=== PATIENT | male | born 1960 | race African-American/Black ===

== ENCOUNTER 2017-03-19 12:40 | Inpatient (IN) | payer OTHER ==
[2017-03-19 12:57] VITALS: BMI 20.3
[2017-03-19] MEDS ORDERED: MAGNESIUM CITRATE 300 ML BOTTLE PO PRN (14:44)
[2017-03-19] MEDS ORDERED: MAG HYDROX/AL HYDROX/SIMETH 30 ML UNIT-DOSE CUP PO PRN (14:44)
[2017-03-19] MEDS ORDERED: chlordiazePOXIDE HCL 25 MG CAPSULE PO PRN (14:44)
[2017-03-19] MEDS ORDERED: ACETAMINOPHEN 325 MG TABLET (FP) PO PRN (14:44)
[2017-03-19] MEDS ORDERED: guaiFENesin/D-METHORPHAN HB 10 ML UNIT-DOSE CUPS PO PRN (14:44)
[2017-03-19] MEDS ORDERED: NICOTINE POLACRILEX 2 MG GUM BC PRN (14:44)
[2017-03-19] MEDS ORDERED: MAGNESIUM HYDROX 2400MG/30ML ORAL SUSPENSION 30 ML CUP PO PRN (14:44)
[2017-03-19] MEDS ORDERED: hydrOXYzine PAMOATE 50 MG CAPSULE (FP) PO PRN (14:44)
[2017-03-19] MEDS ORDERED: MENTHOL/PHENOL 1 EACH UD MM PRN (14:44)
[2017-03-19] MEDS ORDERED: P-EPHED 60MG/TRIPROLIDI 2.5MG TABLET PO PRN (14:44)
[2017-03-19] MEDS ORDERED: IBUPROFEN 400 MG TABLET (FP) PO PRN (14:44)
[2017-03-19] MEDS ORDERED: LOPERAMIDE HCL 2 MG CAPSULE PO PRN (14:44)
--- NOTE | 2017-03-19 14:44 | HP ---
CIWA Score - CIWA Score Nausea/Vomitin Muscle Tremors: 3 Anxiety: 3 Agitation: 3 Paroxysmal Sweats: 3 Orientation: 0-Oriented Tacttile Disturbances: 1-Very Mild Itch/Numbness Auditory Disturbances: 0-None Visual Disturbances: 0-None Headache: 1-Very Mild CIWA-Ar Total Score: 17 Admission [facility] Chief Complaint: alcohol withdrawal sx Allergies/Adverse Reactions: Allergies Allergy/AdvReac Type Severity Reaction Status Date / Time sulfamethoxazole Allergy Intermediate Rash Verified 03/19/17 14:03 [From Bactrim] trimethoprim [From Bactrim] Allergy Intermediate Rash Verified 03/19/17 14:03 History of Present Illness: 57 yo m w h/o chronic alcoholism who reports alcohol withdrawal sx when he does not drink. daily cocaine use. denies seizures, dts PMHX HIV+, on meds, does not have them with him and has not been taking them x1 week, schizophrenia on meds which he has been taking. nicotine dependence Exam Limitations: No Limitations - Ebola screening Have you traveled outside of the country in the last 21 days: No Have you had contact with anyone from an Ebola affected area: No Have you been sick,other than usual withdrawal symptoms: No - Review of Systems Constitutional: Chills, Diaphoresis, Changes in sleep, Weakness, Unintentional Wgt. Loss EENT: reports: No Symptoms Reported Respiratory: reports: Cough (urti, smokers cough), Wheezing (astma) Cardiac: reports: No Symptoms Reported GI: reports: Nausea, Poor Appetite, Poor Fluid Intake, Abdominal cramping : reports: No Symptoms Reported Musculoskeletal: reports: No Symptoms Reported Integumentary: reports: Sweating Neuro: reports: Headache, Numbness, Tingling, Tremors Endocrine: reports: No Symptoms Reported Hematology: reports: No Symptoms Reported Psychiatric: reports: Judgement Intact, Mood/Affect Appropiate, Orientated x3, Anxious, Depressed Other Systems: Reviewed and Negative Patient History - Patient Medical History Hx Anemia: No Hx Asthma: Yes Hx Chronic Obstructive Pulmonary Disease (COPD): No Hx Cancer: No Hx Cardiac Disorders: No Hx Congestive Heart Failure: No Hx Hypertension: No Hx Hypercholesterolemia: No Hx Pacemaker: No HX Cerebrovascular Accident: No Hx Seizures: No Hx Dementia: No Hx Diabetes: No Hx Gastrointestinal Disorders: No Hx Liver Disease: No Hx Genitourinary Disorders: No Hx Sexually Transmitted Disorders: Yes (gonorrhea at age 16) Hx Renal Disease (ESRD): No Hx Thyroid Disease: No Hx Human Immunodeficiency Virus (HIV): Yes (POSITIVE SINCE 1982) Hx Hepatitis C: No Hx Depression: Yes Hx Suicide Attempt: No (no SI at this time) Hx Bipolar Disorder: No Hx Schizophrenia: Yes - Patient Surgical History Past Surgical History: Yes Hx Neurologic Surgery: No Hx Cataract Extraction: No Hx Cardiac Surgery: No Hx Lung Surgery: No Hx Breast Surgery: No Hx Breast Biopsy: No Hx Abdominal Surgery: No Hx Appendectomy: No Hx Cholecystectomy: No Hx Genitourinary Surgery: No Hx Section: No Hx Orthopedic Surgery: No Other Surgical History: right testis [id number] Anesthesia Reaction: No - PPD History Previous Implant?: Yes Documented Results: Negative w/proof Implanted On Prior [facility] Admission?: Yes Date: 01/05/16 Results: 0 mm PPD to be Administered?: Yes - Reproductive History Patient is a Female of Child Bearing Age (11 -55 yrs old): No Patient : No - Smoking Cessation Smoking history: Current every day smoker Have you smoked in the past 12 months: Yes Aproximately how many cigarettes per day: 10 Cigars Per Day: 0 Hx Chewing Tobacco Use: No Initiated information on smoking cessation: Yes 'Breaking Loose' booklet given: 03/19/17 - Substance & Tx. History Hx Alcohol Use: Yes Hx Substance Use: Yes Substance Use Type: Alcohol, Cocaine Hx Substance Use Treatment: Yes ([facility] 1 year ago, attends day program HIV/ ID) - Substances Abused Crack Route: Smoking Frequency: 3-6 times per week Amount used: $70 Age of first use: 21 Date of Last Use: 03/18/17 Alcohol-valorie/beer Route: Oral Frequency: Daily Amount used: 1/2 pt./4 (12 oz.) Age of first use: 15 Date of Last Use: 03/18/17 Family Disease History - Family Disease History Family History: Denies Admission Physical Exam BHS - Vital Signs Vital Signs: Vital Signs - 24 hr 03/19/17 12:53 Temperature 98.9 F Pulse Rate 100 H Respiratory 18 Rate Blood Pressure 110/70 - Physical General Appearance: Yes: Nourished, Appropriately Dressed, Disheveled, Mild Distress, Thin, Tremorous, Irritable, Sweating, Anxious HEENTM: Yes: Within Normal Limits, EOMI, Hearing grossly Normal, Normal ENT Inspection, Pharynx Normal, Tm's normal Respiratory: Yes: Chest Non-Tender, Lungs Clear, Normal Breath Sounds, Wheezing Neck: Yes: Within Normal Limits, No masses,lesions,Nodules, Supple, Trachea in good position Breast: Yes: Breast Exam Deferred Cardiology: Yes: Within Normal Limits, Regular Rhythm, Regular Rate, S1, S2 Abdominal: Yes: Normal Bowel Sounds, Non Tender, Flat, Soft Genitourinary: Yes: Within Normal Limits Back: Yes: Within Normal Limits, Normal Inspection Musculoskeletal: Yes: full range of Motion, Gait Steady, Pelvis Stable Extremities: Yes: Normal Capillary Refill, Normal Range of Motion, Non-Tender, Tremors Neurological: Yes: loan collector II-XII NML intact, Fully Oriented, Alert, Motor Strength 5/5, Normal Response, Depressed Affect Integumentary: Yes: Normal Color, Warm, Diaphoresis, Moist Lymphatic: Yes: Within Normal Limits - Addiitonal Findings: withdrawal sx - Diagnostic (1) Alcohol dependence with uncomplicated withdrawal Current Visit: Yes Status: Acute (2) Acquired immune deficiency syndrome (AIDS) Current Visit: No Status: Chronic (3) Asthma Current Visit: No Status: Chronic (4) Cocaine dependence Current Visit: No Status: Chronic (5) Eczema Current Visit: No Status: Chronic (6) Nicotine dependence Current Visit: No Status: Chronic Qualifiers: Nicotine product type: cigarettes Substance use status: uncomplicated Qualified Code(s): F17.210 - Nicotine dependence, cigarettes, uncomplicated (7) Schizophrenia Current Visit: No Status: Chronic Cleared for Admission [facility] - Detox or Rehab [facility] Level of Care: Medically Managed Detox Regimen/Protocol: Librium [facility] Breath Alcohol Content Breath Alcohol Content: 0 Urine Drug Screen - Results Urine Drug Screen Results: KALEN-Cocaine
[2017-03-19] MEDS ORDERED: chlordiazePOXIDE HCL 25 MG CAPSULE PO ONE (15:30)
[2017-03-19] MEDS: RITONAVIR 100 MG TABLET PO SCH (17:15)
[2017-03-19] MEDS: EMTRICITABINE 200MG/TENOFOVIR 300MG PO SCH (17:15)
[2017-03-19] MEDS: DARUNAVIR ETHANOLATE 800 MG TAB PO SCH (17:15)
[2017-03-19] MEDS: NICOTINE 14 MG/24 HOURS TOPICAL PATCH TD SCH (17:16)
[2017-03-19] MEDS: chlordiazePOXIDE HCL 25 MG CAPSULE PO SCH ×2 (17:16→22:13)
[2017-03-19] MEDS: THIAMINE HCL 100 MG TABLET (FP) PO SCH (22:13)
[2017-03-19] MEDS: RALTEGRAVIR POTASSIUM 400 MG TAB PO SCH (22:13)
[2017-03-19] MEDS: NYSTATIN 500,000 UNITS/5 ML SUSPENSION PO SCH (22:13)
[2017-03-20 02:15] LABS: URINE APPEARANCE CLEAR; URINE BILIRUBIN NEGATIVE (NEGATIVE); URINE BLOOD NEGATIVE (NEGATIVE); URINE COLOR LTYELLOW; URINE GLUCOSE (UA) NEGATIVE (NEGATIVE); URINE KETONE NEGATIVE (NEGATIVE); URINE NITRITE NEGATIVE (NEGATIVE); URINE PROTEIN NEGATIVE (NEGATIVE); URINE UROBILINOGEN NEGATIVE mg/dL (0.2-1.0)
[2017-03-20] MEDS: chlordiazePOXIDE HCL 25 MG CAPSULE PO SCH ×4 (06:20→22:05)
--- NOTE | 2017-03-20 09:02 | EKG ---
Test Reason : Blood Pressure : / mmHG Vent. Rate : 088 BPM Atrial Rate : 088 BPM P-R Int : 126 ms QRS Dur : 090 ms QT Int : 356 ms P-R-T Axes : 073 076 074 degrees QTc Int : 430 ms NORMAL SINUS RHYTHM NORMAL ECG NO PREVIOUS ECGS AVAILABLE Confirmed by DARBY DAMON, RAIMUNDO ([id number]) on 03/20/2017 9:02:10 AM Referred By: Confirmed By:RAIMUNDO PASTOR MD
[2017-03-20] MEDS: ALBUTEROL SO4 18 GM HFA INHALER IH PRN (09:25)
[2017-03-20] MEDS: PRENATAL VITAMINS W/ FOLIC ACID TABLET (FP) PO SCH (10:15)
[2017-03-20] MEDS: EMTRICITABINE 200MG/TENOFOVIR 300MG PO SCH (10:15)
[2017-03-20] MEDS: DARUNAVIR ETHANOLATE 800 MG TAB PO SCH (10:15)
[2017-03-20] MEDS: RITONAVIR 100 MG TABLET PO SCH (10:15)
[2017-03-20] MEDS: NICOTINE 14 MG/24 HOURS TOPICAL PATCH TD SCH (10:15)
[2017-03-20] MEDS: RALTEGRAVIR POTASSIUM 400 MG TAB PO SCH ×2 (10:15→22:06)
[2017-03-20] MEDS: NYSTATIN 500,000 UNITS/5 ML SUSPENSION PO SCH ×2 (10:15→22:05)
[2017-03-20 10:18] LABS: MCH 27.6 pg (25.7-33.7); MCHC 32.5 g/dl (32.0-35.9); MEAN CELL VOLUME 84.7 fl (80-96); MEAN PLT VOLUME 7.3 fl (7.5-11.1); PLATELET COUNT 335 K/MM3 (134-434); RDW 13.9 % (11.9-15.9); WHITE BLOOD COUNT 5.3 K/mm3 (4.0-10.0)
[2017-03-20 10:26] LABS: ALBUMIN 3.3 g/dl (3.4-5.0); ALK PHOS 71 U/L (45-117); ANION GAP 6 (8-16); BILIRUBIN,TOTAL 0.6 mg/dL (0.2-1.0); CO2 29 mmol/L (21-32); GLUCOSE,RANDOM 106 mg/dL (74-106); SGOT/AST 16 U/L (15-37); SGPT/ALT 25 U/L (12-78); TOT PROT 6.1 g/dl (6.4-8.2)
[2017-03-20 11:19] LABS: URINE LEUK ESTERASE Negative (NEGATIVE)
[2017-03-20] MEDS ORDERED: FLU VACCINE QUAD 60 MCG/0.5 ML (MDV 17-18) IM ONE (12:00)
--- NOTE | 2017-03-20 12:51 | CONSULT ---
[facility] Psychiatric Consult - Data Date of interview: 03/20/17 Admission source: [facility] Identifying data: Readmission to [facility] for this 57 y/o AA male seeking detox treatment on for alcohol and cocaine dependence.Patient is single without children,domiciled,unemployed and supported on SSI benefits. Substance Abuse History: Confirmed by patient in thius session..See current [facility] report for details : Smoking history: Current every day smoker. Have you smoked in the past 12 months: Yes. Aproximately how many cigarettes per day: 10. Cigars Per Day: 0. Hx Chewing Tobacco Use: No. Initiated information on smoking cessation: Yes. 'Breaking Loose' booklet given: 03/19/17. - Substance & Tx. History. Hx Alcohol Use: Yes. Hx Substance Use: Yes. Substance Use Type : Alcohol, Cocaine. Hx Substance Use Treatment: Yes ([facility] 1 year ago, attends day program HIV/ID). - Substances Abused. Crack. Route: Smoking. Frequency: 3-6 times per week. Amount used: $70. Age of first use: 21. Date of Last Use: 03/18/17. Alcohol-valorie/beer. Route: Oral. Frequency: Daily. Amount used: 1/2 pt./4 (12 oz.). Age of first use: 15. Date of Last Use: 03/18/17 Medical History: Bronchial asthma,HIV infection since 1982,past treatment for gonorrhea,eczema and a remote history of drainage of right hydrocele (2016). Psychiatric History: Diagnosed with Schizophrenia.Prescribed olanzapine 15 mg/ hs + cogentin (dose not recalled).Mr Verde [facility] in the [place].He admits to a history of multiple psychiatric hospitalizations and a history of sub-optimal adherence to his medications (reportedly taken a week ago).Patient denies history of suicide attempts. Physical/Sexual Abuse/Trauma History: Patient denies. Additional Comment: Urine Drug Screen Results: KALEN-Cocaine.Noted. Mental Status Exam - Mental Status Exam Alert and Oriented to: Time, Place, Person Cognitive Function: Grossly Intact Patient Appearance: Unkempt, Disheveled Mood: Nervous, Withdrawn, Irritable Affect: Mood Congruent, Blunted Patient Behavior: Guarded, Cooperative (superficially cooperative) Speech Pattern: Clear Voice Loudness: Normal Thought Process: Goal Oriented Thought Disorder: Not Present Hallucinations: Denies Suicidal Ideation: Denies Homicidal Ideation: Denies Insight/Judgement: Poor Sleep: Fair Appetite: Good Muscle strength/Tone: Normal Gait/Station: Normal Psychiatric Findings - Problem List ([place] 1, 2,3) (1) Alcohol dependence with uncomplicated withdrawal Current Visit: Yes Status: Acute (2) Cocaine dependence Current Visit: Yes Status: Chronic (3) Nicotine dependence Current Visit: Yes Status: Acute Qualifiers: Nicotine product type: cigarettes Substance use status: uncomplicated Qualified Code(s): F17.210 - Nicotine dependence, cigarettes, uncomplicated (4) Schizophrenia Current Visit: Yes Status: Chronic - Initial Treatment Plan Initial Treatment Plan: Psychoeducation.Detoxification in progress.Medications : zyprexa 15 mg po hs + cogentin 0.5 mg po hs.Side effects/benefits of each medication are discussed with the patient.He is in agreement with this careplan.Observation.
--- NOTE | 2017-03-20 14:34 | PN ---
[facility] CIWA - CIWA Score Nausea/Vomitin-No Nausea/No Vomiting Muscle Tremors: 4-Moderate,w/Arms Extend Anxiety: 4-Mod. Anxious/Guarded Agitation: 2 Paroxysmal Sweats: 3 Orientation: 2-Disoriented Date<2 days Tacttile Disturbances: 2-Mild Itch/Numbness/Burn Auditory Disturbances: 0-None Visual Disturbances: 2-Mild Sensitivity Headache: 0-None Present CIWA-Ar Total Score: 19 BHS Progress Note (SOAP) Subjective: Tremors, Fatigue, Anxious, Sweating. Objective: PT. A & O X 2 (UNCERTAIN ABOUT DAY / DATE). NO ACUTE DISTRESS. 03/20/17 14:33 Vital Signs Temperature 98.0 F 03/20/17 13:23 Pulse Rate 98 H 03/20/17 13:23 Respiratory Rate 20 03/20/17 13:23 Blood Pressure 107/66 03/20/17 13:23 O2 Sat by Pulse Oximetry (%) Laboratory Tests 03/19/17 03/20/17 03/20/17 15:46 06:00 06:00 WBC 5.3 D RBC 4.38 Hgb 12.1 Hct 37.1 MCV 84.7 MCH 27.6 MCHC 32.5 RDW 13.9 Plt Count 335 MPV 7.3 L Sodium 139 Potassium 3.8 Chloride 104 Carbon Dioxide 29 Anion Gap 6 L BUN 7 D Creatinine 1.0 Creat Clearance w eGFR > 60 Random Glucose 106 D Calcium 8.0 L Total Bilirubin 0.6 AST 16 D ALT 25 D Alkaline Phosphatase 71 Total Protein 6.1 L Albumin 3.3 L Urine Color Ltyellow Urine Appearance Clear Urine pH 6.0 Ur Specific [place] 1.005 Urine Protein Negative Urine Glucose (UA) Negative Urine Ketones Negative Urine Blood Negative Urine Nitrite Negative Urine Bilirubin Negative Urine Urobilinogen Negative Ur Leukocyte Esterase Negative RPR Titer 03/20/17 06:00 WBC RBC Hgb Hct MCV MCH MCHC RDW Plt Count MPV Sodium Potassium Chloride Carbon Dioxide Anion Gap BUN Creatinine Creat Clearance w eGFR Random Glucose Calcium Total Bilirubin AST ALT Alkaline Phosphatase Total Protein Albumin Urine Color Urine Appearance Urine pH Ur Specific [place] Urine Protein Urine Glucose (UA) Urine Ketones Urine Blood Urine Nitrite Urine Bilirubin Urine Urobilinogen Ur Leukocyte Esterase RPR Titer Nonreactive LABS NOTED. Assessment: 03/20/17 14:33 WITHDRAWAL SYMPTOMS. Plan: CONTINUE DETOX.
[2017-03-20] MEDS: BENZTROPINE MESYLATE 1 MG TABLET (FP) PO SCH (22:05)
[2017-03-20] MEDS: OLANZapine 10 MG TABLET PO SCH (22:05)
[2017-03-20] MEDS: THIAMINE HCL 100 MG TABLET (FP) PO SCH (22:05)
[2017-03-21] MEDS: chlordiazePOXIDE HCL 25 MG CAPSULE PO SCH ×2 (05:40→10:30)
[2017-03-21] MEDS: NYSTATIN 500,000 UNITS/5 ML SUSPENSION PO SCH ×2 (10:29→22:24)
[2017-03-21] MEDS: RITONAVIR 100 MG TABLET PO SCH (10:30)
[2017-03-21] MEDS: DARUNAVIR ETHANOLATE 800 MG TAB PO SCH (10:30)
[2017-03-21] MEDS: RALTEGRAVIR POTASSIUM 400 MG TAB PO SCH ×2 (10:30→22:24)
[2017-03-21] MEDS: EMTRICITABINE 200MG/TENOFOVIR 300MG PO SCH (10:30)
[2017-03-21] MEDS: NICOTINE 14 MG/24 HOURS TOPICAL PATCH TD SCH (10:30)
[2017-03-21] MEDS: PRENATAL VITAMINS W/ FOLIC ACID TABLET (FP) PO SCH (10:30)
--- NOTE | 2017-03-21 15:31 | PN ---
S CIWA - CIWA Score Nausea/Vomitin-Mild Nausea/No Vomiting Muscle Tremors: 4-Moderate,w/Arms Extend Anxiety: 3 Agitation: 3 Paroxysmal Sweats: 2 Orientation: 0-Oriented Tacttile Disturbances: 1-Very Mild Itch/Numbness Auditory Disturbances: 0-None Visual Disturbances: 0-None Headache: 2-Mild CIWA-Ar Total Score: 16 BHS Progress Note (SOAP) Subjective: Tremor, chills, sweating, interrupted sleep Objective: 03/21/17 15:29 Last Vital Signs Temp Pulse Resp BP Pulse Ox 97.5 F L 98 H 18 96/65 03/21/17 13:19 03/21/17 13:19 03/21/17 13:19 03/21/17 13:19 B/P noted Laboratory Tests 03/19/17 03/20/17 03/20/17 15:46 06:00 06:00 WBC 5.3 D RBC 4.38 Hgb 12.1 Hct 37.1 MCV 84.7 MCH 27.6 MCHC 32.5 RDW 13.9 Plt Count 335 MPV 7.3 L Sodium 139 Potassium 3.8 Chloride 104 Carbon Dioxide 29 Anion Gap 6 L BUN 7 D Creatinine 1.0 Creat Clearance w eGFR > 60 Random Glucose 106 D Calcium 8.0 L Total Bilirubin 0.6 AST 16 D ALT 25 D Alkaline Phosphatase 71 Total Protein 6.1 L Albumin 3.3 L Urine Color Ltyellow Urine Appearance Clear Urine pH 6.0 Ur Specific [place] 1.005 Urine Protein Negative Urine Glucose (UA) Negative Urine Ketones Negative Urine Blood Negative Urine Nitrite Negative Urine Bilirubin Negative Urine Urobilinogen Negative Ur Leukocyte Esterase Negative RPR Titer 03/20/17 06:00 WBC RBC Hgb Hct MCV MCH MCHC RDW Plt Count MPV Sodium Potassium Chloride Carbon Dioxide Anion Gap BUN Creatinine Creat Clearance w eGFR Random Glucose Calcium Total Bilirubin AST ALT Alkaline Phosphatase Total Protein Albumin Urine Color Urine Appearance Urine pH Ur Specific [place] Urine Protein Urine Glucose (UA) Urine Ketones Urine Blood Urine Nitrite Urine Bilirubin Urine Urobilinogen Ur Leukocyte Esterase RPR Titer Nonreactive Labs noted Assessment: 03/21/17 15:30 Withdrawal symptoms Noted with hypotension Plan: Continue detox Hypotension: asymptomatic, encouraged to drink lots of water
[2017-03-21] MEDS: chlordiazePOXIDE 5 MG CAPSULE PO SCH ×2 (17:16→22:25)
[2017-03-21] MEDS: THIAMINE HCL 100 MG TABLET (FP) PO SCH (22:24)
[2017-03-21] MEDS: OLANZapine 10 MG TABLET PO SCH (22:24)
[2017-03-21] MEDS: BENZTROPINE MESYLATE 1 MG TABLET (FP) PO SCH (22:24)
[2017-03-22] MEDS: chlordiazePOXIDE 5 MG CAPSULE PO SCH ×2 (06:14→10:38)
--- NOTE | 2017-03-22 08:44 | PN ---
BHS Progress Note (SOAP) Subjective: nausesa, sweats, interrupted sleep, anxiety, tremors Objective: 03/22/17 08:43 Vital Signs - 24 hr 03/21/17 03/21/17 03/21/17 09:13 13:19 17:55 Temperature 97.8 F 97.5 F L 97.3 F L Pulse Rate 99 H 98 H 96 H Respiratory 18 18 18 Rate Blood Pressure 100/71 96/65 93/60 03/21/17 03/22/17 03/22/17 22:36 00:51 04:12 Temperature 99 F Pulse Rate 109 H Respiratory 19 16 18 Rate Blood Pressure 97/66 03/22/17 06:29 Temperature 97.1 F L Pulse Rate 71 Respiratory 18 Rate Blood Pressure 91/62 Laboratory Tests 03/19/17 03/20/17 03/20/17 15:46 06:00 06:00 WBC 5.3 D RBC 4.38 Hgb 12.1 Hct 37.1 MCV 84.7 MCH 27.6 MCHC 32.5 RDW 13.9 Plt Count 335 MPV 7.3 L Sodium 139 Potassium 3.8 Chloride 104 Carbon Dioxide 29 Anion Gap 6 L BUN 7 D Creatinine 1.0 Creat Clearance w eGFR > 60 Random Glucose 106 D Calcium 8.0 L Total Bilirubin 0.6 AST 16 D ALT 25 D Alkaline Phosphatase 71 Total Protein 6.1 L Albumin 3.3 L Urine Color Ltyellow Urine Appearance Clear Urine pH 6.0 Ur Specific [place] 1.005 Urine Protein Negative Urine Glucose (UA) Negative Urine Ketones Negative Urine Blood Negative Urine Nitrite Negative Urine Bilirubin Negative Urine Urobilinogen Negative Ur Leukocyte Esterase Negative RPR Titer 03/20/17 06:00 WBC RBC Hgb Hct MCV MCH MCHC RDW Plt Count MPV Sodium Potassium Chloride Carbon Dioxide Anion Gap BUN Creatinine Creat Clearance w eGFR Random Glucose Calcium Total Bilirubin AST ALT Alkaline Phosphatase Total Protein Albumin Urine Color Urine Appearance Urine pH Ur Specific [place] Urine Protein Urine Glucose (UA) Urine Ketones Urine Blood Urine Nitrite Urine Bilirubin Urine Urobilinogen Ur Leukocyte Esterase RPR Titer Nonreactive Assessment: 03/22/17 08:44 withdrawal sx, cont detox, fliuids, encoruage ambualtion.
[2017-03-22] MEDS: RITONAVIR 100 MG TABLET PO SCH (10:38)
[2017-03-22] MEDS: NYSTATIN 500,000 UNITS/5 ML SUSPENSION PO SCH ×2 (10:38→22:10)
[2017-03-22] MEDS: NICOTINE 14 MG/24 HOURS TOPICAL PATCH TD SCH (10:38)
[2017-03-22] MEDS: PRENATAL VITAMINS W/ FOLIC ACID TABLET (FP) PO SCH (10:38)
[2017-03-22] MEDS: RALTEGRAVIR POTASSIUM 400 MG TAB PO SCH ×2 (10:38→22:09)
[2017-03-22] MEDS: DARUNAVIR ETHANOLATE 800 MG TAB PO SCH (10:38)
[2017-03-22] MEDS: EMTRICITABINE 200MG/TENOFOVIR 300MG PO SCH (10:39)
[2017-03-22] MEDS: ALBUTEROL SO4 18 GM HFA INHALER IH PRN ×2 (10:41→21:10)
[2017-03-22] MEDS: chlordiazePOXIDE HCL 10 MG CAPSULE PO SCH ×2 (17:20→22:09)
[2017-03-22] MEDS: THIAMINE HCL 100 MG TABLET (FP) PO SCH (22:08)
[2017-03-22] MEDS: BENZTROPINE MESYLATE 1 MG TABLET (FP) PO SCH (22:09)
[2017-03-22] MEDS: OLANZapine 10 MG TABLET PO SCH (22:09)
[2017-03-23] MEDS: chlordiazePOXIDE HCL 10 MG CAPSULE PO SCH ×2 (05:25→11:07)
[2017-03-23 09:57] VITALS: BP 98/65; PULSE 107; TEMP 97.8
[2017-03-23] MEDS: DARUNAVIR ETHANOLATE 800 MG TAB PO SCH (10:15)
[2017-03-23] MEDS: PRENATAL VITAMINS W/ FOLIC ACID TABLET (FP) PO SCH (10:15)
[2017-03-23] MEDS: RALTEGRAVIR POTASSIUM 400 MG TAB PO SCH (10:15)
[2017-03-23] MEDS: EMTRICITABINE 200MG/TENOFOVIR 300MG PO SCH (10:16)
[2017-03-23] MEDS: NYSTATIN 500,000 UNITS/5 ML SUSPENSION PO SCH (10:16)
[2017-03-23] MEDS: RITONAVIR 100 MG TABLET PO SCH (10:16)
[2017-03-23] MEDS: NICOTINE 14 MG/24 HOURS TOPICAL PATCH TD SCH (10:16)
[2017-03-23] MEDS: ALBUTEROL SO4 18 GM HFA INHALER IH PRN (10:17)
--- NOTE | 2017-03-23 14:35 | DS ---
[facility] Detox Discharge Summary Admission Date: 03/19/17 Discharge Date: 03/23/17 - History Present History: Alcohol Dependence, Cocaine Dependence Additional Comments: [facility]. PATIENT WAS DISCHARGED FROM DETOX UNIT TO BE TAKEN TO REHAB UNIT IN STABLE MEDICAL CONDITION. Pertinent Past History: Asthma, Schizophrenia, HIV/ AIDS, Depression, Nicotine Dependence, Eczema. - Physical Exam Results Vital Signs: Vital Signs Temperature 97.8 F 03/23/17 09:56 Pulse Rate 107 H 03/23/17 09:56 Respiratory Rate 18 03/23/17 09:56 Blood Pressure 98/65 03/23/17 09:56 O2 Sat by Pulse Oximetry (%) Pertinent Admission Physical Exam Findings: WITHDRAWAL SYMPTOMS. Laboratory Tests 03/19/17 03/20/17 03/20/17 15:46 06:00 06:00 WBC 5.3 D RBC 4.38 Hgb 12.1 Hct 37.1 MCV 84.7 MCH 27.6 MCHC 32.5 RDW 13.9 Plt Count 335 MPV 7.3 L Sodium 139 Potassium 3.8 Chloride 104 Carbon Dioxide 29 Anion Gap 6 L BUN 7 D Creatinine 1.0 Creat Clearance w eGFR > 60 Random Glucose 106 D Calcium 8.0 L Total Bilirubin 0.6 AST 16 D ALT 25 D Alkaline Phosphatase 71 Total Protein 6.1 L Albumin 3.3 L Urine Color Ltyellow Urine Appearance Clear Urine pH 6.0 Ur Specific [place] 1.005 Urine Protein Negative Urine Glucose (UA) Negative Urine Ketones Negative Urine Blood Negative Urine Nitrite Negative Urine Bilirubin Negative Urine Urobilinogen Negative Ur Leukocyte Esterase Negative RPR Titer 03/20/17 06:00 WBC RBC Hgb Hct MCV MCH MCHC RDW Plt Count MPV Sodium Potassium Chloride Carbon Dioxide Anion Gap BUN Creatinine Creat Clearance w eGFR Random Glucose Calcium Total Bilirubin AST ALT Alkaline Phosphatase Total Protein Albumin Urine Color Urine Appearance Urine pH Ur Specific [place] Urine Protein Urine Glucose (UA) Urine Ketones Urine Blood Urine Nitrite Urine Bilirubin Urine Urobilinogen Ur Leukocyte Esterase RPR Titer Nonreactive LABS NOTED. - Treatment Hospital Course: Detox Protocol Followed, Detoxed Safely, Responded well, Discharged Condition Good, Rehab Referral Accepted Patient has Accepted a Rehab Referral to: [facility]. - Medication Discharge Medications: Ambulatory Orders Albuterol Sulfate Inhaler - [Ventolin HFA Inhaler -] 2 inh IH Q4H PRN 06/03/12 Raltegravir [Isentress] 400 mg PO BID 06/03/12 Ritonavir [Norvir] 100 mg PO DAILY 06/03/12 Darunavir Ethanolate [Prezista -] 800 mg PO DAILY 01/03/16 Emtricitabine/Tenofovir [Truvada] 1 tab PO DAILY 01/03/16 Olanzapine [Zyprexa] 15 mg PO HS 01/03/16 Benztropine Mesylate [Cogentin -] 1 mg PO DAILY #30 tablet 01/13/16 Nystatin 1 tsp PO BID 03/19/17 Benztropine Mesylate [Cogentin -] 1 mg PO DAILY #30 tablet 03/20/17 Olanzapine 15 mg PO HS #30 tablet 03/20/17 - Diagnosis (1) Alcohol dependence with uncomplicated withdrawal Status: Acute (2) Acquired immune deficiency syndrome (AIDS) Status: Chronic (3) Asthma Status: Chronic (4) Cocaine dependence Status: Chronic (5) Eczema Status: Chronic (6) Nicotine dependence Status: Chronic Qualifiers: Nicotine product type: cigarettes Substance use status: uncomplicated Qualified Code(s): F17.210 - Nicotine dependence, cigarettes, uncomplicated (7) Schizophrenia Status: Chronic - AMA Did Patient Leave Against Medical Advice: No
== END 2017-03-23 13:43 | disposition other institution (70) | DRG 774 ==
LOC: YASAS 12:40 → Y3N 14:43
PROVIDERS: ADMIT Internal Medicine; ATTEND Internal Medicine
PROC: HZ2ZZZZ Detoxification Services for Substance Abuse Treatment (ICD-10-PCS; principal; 2017-03-19)
DX: F10.230 Alcohol dependence with withdrawal, uncomplicated (principal); F14.20 Cocaine dependence, uncomplicated; F17.210 Nicotine dependence, cigarettes, uncomplicated; F20.9 Schizophrenia, unspecified; J45.909 Unspecified asthma, uncomplicated; I95.9 Hypotension, unspecified; B20 Human immunodeficiency virus [HIV] disease
CPT/HCPCS: 36415; 80053; 81003; 85027; 86593; 93005; 93010

== ENCOUNTER 2017-03-23 13:37 | Inpatient (IN) | payer OTHER ==
[2017-03-23] MEDS ORDERED: NICOTINE POLACRILEX 2 MG GUM BUC PRN (14:26)
[2017-03-23] MEDS ORDERED: MAG HYDROX/AL HYDROX/SIMETH 30 ML UNIT-DOSE CUP PO PRN (14:26)
[2017-03-23] MEDS ORDERED: MENTHOL/PHENOL 1 EACH UD MM PRN (14:26)
[2017-03-23] MEDS ORDERED: guaiFENesin/D-METHORPHAN HB 10 ML UNIT-DOSE CUPS PO PRN (14:26)
[2017-03-23] MEDS ORDERED: MAGNESIUM CITRATE 300 ML BOTTLE PO PRN (14:26)
[2017-03-23] MEDS ORDERED: ALBUTEROL SO4 18 GM HFA INHALER IH PRN (14:26)
[2017-03-23] MEDS ORDERED: MAGNESIUM HYDROX 2400MG/30ML ORAL SUSPENSION 30 ML CUP PO PRN (14:26)
[2017-03-23] MEDS ORDERED: P-EPHED 60MG/TRIPROLIDI 2.5MG TABLET PO PRN (14:26)
[2017-03-23] MEDS ORDERED: IBUPROFEN 400 MG TABLET (FP) PO PRN (14:26)
[2017-03-23] MEDS ORDERED: LOPERAMIDE HCL 2 MG CAPSULE PO PRN (14:26)
[2017-03-23] MEDS ORDERED: ACETAMINOPHEN 325 MG TABLET (FP) PO PRN (14:26)
--- NOTE | 2017-03-23 14:31 | HP ---
GAYLE DAMON Rehab Assess/Revision - Admission History Admitted to Rehab from: [facility] Date of Admission to Rehab: 03/23/2017 - Vital signs Vital Signs: Vital Signs Period Temp Pulse Resp BP Sys/Cervantes Pulse Ox Last 24 Hr 98.1 F 93 18 104/65 - Findings Detox History & Physical reviewed: Yes Concur with findings: Yes Comments/Additional Findings: PATIENT'S MEDICAL / MEDICATION HISTORY REVIEWED PRIOR TO DISCHARGE FROM DETOX UNIT. PATIENT WAS DISCHARGED FROM DETOX UNIT TO BE TAKEN TO REHAB UNIT IN STABLE MEDICAL CONDITION. Inpatient Rehab Admission - Initial Determination Are CD services needed?: Yes Free of communicable disease: Yes Not in need of hospitalization: Yes - Rehab Admission Criteria Previous failed treatment: Yes Comorbidities: Yes Patient is meeting Inpatient Rehab admission criteria:: Yes
--- NOTE | 2017-03-23 14:57 | HP ---
Psychiatrist Admission - Data Date of interview: 03/23/17 Admission source: [facility] Identifying data: This is the third [facility] inpatient rehabilitation admission for this 57 years old single Black male, unemployed and supported on SSI benefits , currently undomiciled. Medical History: Significant for history of Asthma, Eczema, HIV+/AIDS diagnosed in 1992 and S/P draining of hydrocele right testicle, smokes cigarettes 1/2 ppd. Psychiatric History: Patient is poor historian, was diagnosed as Schizophrenia, following at [facility] with , currently on Zyprexa 15 mg po hs and Toby, reports one psychiatric hospitalization " while ago" for auditory hallucinations , seen by while at [facility] and continued medications. Physical/Sexual Abuse/Trauma History: Denies Vital Signs: Vital Signs - 24 hr 03/23/17 14:21 Temperature 98.1 F Pulse Rate 93 H Respiratory 18 Rate Blood Pressure 104/65 Allergies/Adverse Reactions: Allergies Allergy/AdvReac Type Severity Reaction Status Date / Time sulfamethoxazole Allergy Intermediate Rash Verified 03/23/17 14:24 [From Bactrim] trimethoprim [From Bactrim] Allergy Intermediate Rash Verified 03/23/17 14:24 Date of last physical exam: 03/20/17 Concur with the findings of this exam: Yes - Substance Abuse/Tx History Hx Alcohol Use: Yes Hx Substance Use: Yes (crack 2-3 times weekly $70, first use at age of 19) Substance Use Type: Alcohol (age at first use 15, daily beer, 1/2 pint of vodka) , Cocaine Hx Substance Use Treatment: Yes (attends HIVprogram, [facility] x 2) Mental Status Exam - Mental Status Exam Alert and Oriented to: Time, Place, Person Cognitive Function: Grossly Intact Patient Appearance: Unkempt Mood: Angry, Hostile, Irritable Affect: Mood Congruent Patient Behavior: Guarded Speech Pattern: Clear Voice Loudness: Normal Thought Process: Intact, Goal Oriented Hallucinations: Denies Suicidal Ideation: Denies Homicidal Ideation: Denies Insight/Judgement: Fair Sleep: Fair Appetite: Fair Muscle strength/Tone: Normal Gait/Station: Normal Psychiatric Findings - Problem List ([place] 1, 2,3) (1) Alcohol dependence Current Visit: No Status: Chronic (2) Cocaine dependence Current Visit: No Status: Chronic (3) Nicotine dependence Current Visit: No Status: Chronic Qualifiers: Nicotine product type: cigarettes Substance use status: uncomplicated Qualified Code(s): F17.210 - Nicotine dependence, cigarettes, uncomplicated (4) Schizophrenia Current Visit: No Status: Chronic - Initial Treatment Plan Initial Treatment Plan: continue current medications, monitor progress.
[2017-03-23] MEDS: NYSTATIN 500,000 UNITS/5 ML SUSPENSION PO SCH (21:59)
[2017-03-23] MEDS: BENZTROPINE MESYLATE 1 MG TABLET (FP) PO SCH (21:59)
[2017-03-23] MEDS: OLANZapine 7.5 MG TABLET PO SCH (21:59)
[2017-03-23] MEDS: THIAMINE HCL 100 MG TABLET (FP) PO SCH (21:59)
[2017-03-23] MEDS: RALTEGRAVIR POTASSIUM 400 MG TAB PO SCH (22:13)
[2017-03-24] MEDS: PRENATAL VITAMINS W/ FOLIC ACID TABLET (FP) PO SCH (10:40)
[2017-03-24] MEDS: DARUNAVIR ETHANOLATE 800 MG TAB PO SCH (10:40)
[2017-03-24] MEDS: RALTEGRAVIR POTASSIUM 400 MG TAB PO SCH ×2 (10:41→22:05)
[2017-03-24] MEDS: RITONAVIR 100 MG TABLET PO SCH (10:41)
[2017-03-24] MEDS: NYSTATIN 500,000 UNITS/5 ML SUSPENSION PO SCH ×2 (10:41→22:06)
[2017-03-24] MEDS: NICOTINE 14 MG/24 HOURS TOPICAL PATCH TD SCH (10:41)
[2017-03-24] MEDS: EMTRICITABINE 200MG/TENOFOVIR 300MG PO SCH (10:42)
[2017-03-24] MEDS: OLANZapine 7.5 MG TABLET PO SCH (22:04)
[2017-03-24] MEDS: THIAMINE HCL 100 MG TABLET (FP) PO SCH (22:04)
[2017-03-24] MEDS: BENZTROPINE MESYLATE 1 MG TABLET (FP) PO SCH (22:06)
[2017-03-25] MEDS: DARUNAVIR ETHANOLATE 800 MG TAB PO SCH (10:50)
[2017-03-25] MEDS: NICOTINE 14 MG/24 HOURS TOPICAL PATCH TD SCH (10:51)
[2017-03-25] MEDS: PRENATAL VITAMINS W/ FOLIC ACID TABLET (FP) PO SCH (10:51)
[2017-03-25] MEDS: EMTRICITABINE 200MG/TENOFOVIR 300MG PO SCH (10:51)
[2017-03-25] MEDS: NYSTATIN 500,000 UNITS/5 ML SUSPENSION PO SCH (10:51)
[2017-03-25] MEDS: RITONAVIR 100 MG TABLET PO SCH (10:51)
[2017-03-25] MEDS: RALTEGRAVIR POTASSIUM 400 MG TAB PO SCH (10:51)
--- NOTE | 2017-03-25 11:21 | PN ---
BHS Progress Note (SOAP) Subjective: productive cough worse since arrival to dc smokes 1/2 ppd Objective: 03/25/17 11:20 Vital Signs - 24 hr 03/25/17 03/25/17 03/25/17 00:30 03:30 07:20 Respiratory 16 16 16 Rate Assessment: 03/25/17 11:20 productive cough, hiv , tobacco as risk fx given duration will check cxr to r/o intrapulmonary cause note temp, const sx less caurate 2/2 hiv+
--- NOTE | 2017-03-25 13:20 | PN ---
[facility] Progress Note Note: cxrreviewed no acute process
[2017-03-25 13:23] VITALS: BP 109/65; PULSE 116; TEMP 98.1
--- NOTE | 2017-03-25 15:42 | PN ---
[facility] Progress Note Note: patient decided to leave treatment, when asked reasons leaving treatment he stated "I need to take care of my personal business', patient is alert, cooperative, denies s/h thoughts, scripts for 30 days provided, stable for AMA.
== END 2017-03-25 13:45 | disposition left against medical advice (07) | DRG 770 ==
LOC: YASAS 13:37 → Y5N 13:40
PROVIDERS: ADMIT Psychiatry & Neurology Psychiatry; ATTEND Psychiatry & Neurology Psychiatry
PROC: HZ42ZZZ Group Counseling for Substance Abuse Treatment, Cognitive-Behavioral (ICD-10-PCS; principal; 2017-03-23)
DX: F10.20 Alcohol dependence, uncomplicated (principal); F14.20 Cocaine dependence, uncomplicated; F17.210 Nicotine dependence, cigarettes, uncomplicated; F20.9 Schizophrenia, unspecified
CPT/HCPCS: 71020-TC